=== PATIENT | female | born 1960 | race American Indian/Alaskan Native ===

== ENCOUNTER 2022-06-05 21:07 | Emergency (ER) | payer BC ==
--- NOTE | 2022-06-05 22:16 | XRay Report ---
LEFT KNEE 3 VIEW(S) INDICATION / CLINICAL INFORMATION: injury/fall with left knee pain COMPARISON: None available. FINDINGS: BONES / JOINT(S): No acute fracture or subluxation. Moderate tricompartment degenerative arthrosis. N o significant joint effusion. SOFT TISSUES: No significant abnormality. ADDITIONAL FINDINGS: None. IMPRESSION: 1. No acute findings. Signer Name: Conchis Jain MD Signed: 06/05/2022 10:11 PM Workstation Name: [id number]
--- NOTE | 2022-06-05 22:17 | XRay Report ---
LEFT WRIST 3 VIEW(S) INDICATION / CLINICAL INFORMATION: injury/fall with left wrist pain COMPARISON: None available. FINDINGS: BONES / JOINT(S): Mildly comminuted, transverse fracture of the distal left radius. Fracture does not extend to the distal radial articular surface. Mild dorsal displacement and dorsal tilt of the dista l fracture fragment. No significant arthritis. SOFT TISSUES: Mild dorsal soft tissue swelling. ADDITIONAL FINDINGS: None. IMPRESSION: 1. Distal left radius fracture. Signer Name: Conchis Jain MD Signed: 06/05/2022 10:13 PM Workstation Name: [id number]
[2022-06-06] MEDS ORDERED: KETOROLAC 60 MG/2 ML INJ IM ONE (03:10)
--- NOTE | 2022-06-06 03:39 | Emergency Department Report ---
Upper Extremity - HPI Chief Complaint: Fall Stated Complaint: FALL/LEFT WRIST INJURY Time Seen by Provider: 06/06/22 02:54 Upper Extremity: Right Forearm (fall with pain and swellings) Occurred When: Today (tonight at the hotel parking lot while walking her dog slipped and fell landed on outreach hand) Mechanism: Fall Severity: moderate Symptoms: Yes Pain with Movement, Yes Deformity, Yes Limited Range of Movement, Yes Swelling, Yes Bruising/Ecchymosis, No Numbness, No Weakness, No Laceration or Abrasion ED Review of Systems ROS: Stated complaint: FALL/LEFT WRIST INJURY Other details as noted in HPI Comment: All other systems reviewed and negative Musculoskeletal: joint swelling, arthralgia ED Past Medical Hx - Past Medical History Previous Medical History?: Yes Hx Hypertension: Yes - Surgical History Past Surgical History?: Yes Additional Surgical History: Fribroids. Bowel Obstruction - Social History Smoking Status: Never Smoker Substance Use Type: None - Medications Home Medications: Home Medications Medication Instructions Recorded Confirmed Last Taken Type Ketorolac [Toradol] 10 mg PO Q4HR PRN 5 Days #20 06/06/22 Unknown Rx tablet NS Upper Extremity Exam - Exam General: Vital signs noted. No distress. Alert and acting appropriately. Head and Torso: No HEENT Abnormality, No Neck Tenderness, No Chest/Lungs Abnormality, No Abdominal Tenderness, No Back Tenderness Shoulder Exam: Yes Normal Range of Motion in Shoulder, No Shoulder Tenderness, No Clavicle Tenderness, No Shoulder Deformity, No AC Joint Tenderness Arm Exam: No Arm/Humerus Tenderness, No Arm Deformity Elbow: No Elbow Tenderness, No Normal Range of Motion in Elbow, No Elbow Deformity Forearm: Yes Forearm Tenderness (right wrist and hand ), Yes Forearm Deformity, Yes Pain with Pronation, Yes Pain with Supination Wrist: Yes Wrist Tenderness, Yes Wrist Deformity, Yes Pain with Axial Thumb Compression, No Normal ROM in Wrist, No Snuffbox Tenderness Hand: No Hand Tenderness, No Hand Deformity, No Digit Tenderness, No Normal ROM in Digit(s), No Digit(s) Deformity, No Tendon Dysfunction CMS Exam: Yes Normal Distal Pulses, Yes Normal Capillary Refill, Yes Normal Distal Sensation, No Broken Skin ED Course Vital Signs 06/05/22 21:08 Temperature 98.8 F Pulse Rate 88 Respiratory 18 Rate Blood Pressure 148/82 O2 Sat by Pulse 99 Oximetry ED Medical Decision Making - Radiology Data XRAY right forearm noted with acute distal radial fracture-- - Medical Decision Making here with fall on the outreach right hand and noted with tenderness and swelling with deformity there-- will get xray and given Toradol 60 mg IM x 1 for symptomatic relief Xray noted with right radial fracture- will go ahead and put short arm radial gulter splint with follow up with Orthopedic/PCP in the next 1-2 weeks. Warning given to return to eD in case pain worsen as this could be sign of compartment syndrome-- Critical care attestation.: If time is entered above; I have spent that time in minutes in the direct care of this critically ill patient, excluding procedure time. ED Disposition Clinical Impression: Distal radius fracture, right Qualifiers: Encounter type: initial encounter Fracture type: closed Fracture morphology: unspecified fracture morphology Qualified Code(s): S52.501A - Unspecified fracture of the lower end of right radius, initial encounter for closed fracture Disposition: 01 HOME / SELF CARE / HOMELESS Is pt being admited?: No Does the pt Need Aspirin: No Condition: Stable Instructions: Cast or Splint Care, Adult, [id number], Radial Fracture, Radial Fracture Rehab-SportsMed Additional Instructions: Please call and schedule a follow with your Orthopedic/ PCP in the next 1-2 weeks for revaluation Take your pain medication as prescribed Call or return to eD if your pain worsen while taken your pain medication as this could be sign of complication that needs to be addressed urgently Prescriptions: Ketorolac [Toradol] 10 mg PO Q4HR PRN 5 Days #20 tablet NS PRN Reason: Pain Referrals: LESLYE KEYS MD [Referring] - 3-5 Days Time of Disposition: 03:44
[2022-06-06 05:02] VITALS: BP 143/79
== END 2022-06-06 06:22 | disposition home or self-care (01) ==
LOC: ED 21:07
DX: S52.501A Unspecified fracture of the lower end of right radius, initial encounter for closed fracture (principal); I10 Essential (primary) hypertension; W19.XXXA Unspecified fall, initial encounter; Y93.89 Activity, other specified; Y92.89 Other specified places as the place of occurrence of the external cause; Y99.8 Other external cause status
CPT/HCPCS: 29125; 73110; 73562; 96372; 99284; J1885